=== PATIENT | male | born 1980 | race Caucasian/White ===

== ENCOUNTER 2020-09-13 18:29 | Emergency (ER) | payer OTHER ==
[~2020-09-13 18:29] MED LIST: MULTIVITAMINS1 EAC1 PO; NORCO 5-325 TA1 EACH PO; PERCOCET 7.5/321 TAB PO; ZEGERID 20 MG1 EACH PO
[2020-09-13] MEDS ORDERED: CEPHALEXIN500 MG PO (21:24)
== END 2020-09-13 22:00 | disposition home or self-care (01) ==
LOC: FER 18:29
DX: S61.412A Laceration without foreign body of left hand, initial encounter (principal); X58.XXXA Exposure to other specified factors, initial encounter; Y92.009 Unspecified place in unspecified non-institutional (private) residence as the place of occurrence of the external cause; Z23 Encounter for immunization; Z88.5 Allergy status to narcotic agent
CPT/HCPCS: 73120; 90471; 90715